=== PATIENT | male | born 1995 ===

== ENCOUNTER → 2017-05-26 | Emergency (ER) | payer OTHER ==
[~2017-05-26] VITALS: Ht 190.5 cm; Wt 95.3 kg
== END | disposition home or self-care (01) ==
LOC: ER 19:16
DX: M79.652 Pain in left thigh (principal); M62.838 Other muscle spasm

== ENCOUNTER 2017-06-17 09:44 | Outpatient (CLI) | payer OTHER | END 2017-06-17 09:56 | disposition home or self-care (01) | LOC: LAB 09:44 | DX: Z13.1 Encounter for screening for diabetes mellitus (principal); Z13.220 Encounter for screening for lipoid disorders; Z13.0 Encounter for screening for diseases of the blood and blood-forming organs and certain disorders involving the immune mechanism; Z13.21 Encounter for screening for nutritional disorder ==